=== PATIENT | male | born 1970 | race Caucasian/White ===

== ENCOUNTER 2021-11-13 08:20 | Emergency (ER) | payer OTHER ==
[~2021-11-13] VITALS: Ht 172.7 cm; Wt 80.0 kg
[2021-11-13 08:39] VITALS: BP 123/87
[2021-11-13] MEDS ORDERED: IBUPROFEN 600MG TABLET PO ONE (09:15)
== END 2021-11-13 09:57 | disposition home or self-care (01) ==
LOC: ER 08:20
DX: S93.402A Sprain of unspecified ligament of left ankle, initial encounter (principal); X50.1XXA Overexertion from prolonged static or awkward postures, initial encounter; Y93.54 Activity, bowling; Y92.89 Other specified places as the place of occurrence of the external cause; Y99.8 Other external cause status
CPT/HCPCS: 73610; 73630; 99284